=== PATIENT | female | born 1955 | race Caucasian/White ===

== ENCOUNTER → 2018-11-18 | Outpatient (CLI) | payer OTHER ==
--- NOTE | 2018-11-27 11:07 | PATH ---
[facility] [address] [place] [address] PATHOLOGY RPT PROCEDURE Name: CARTER NICHOLE Room #: REG LIZZIE Howard.#: [id number] Admission: 11/18/18 Date of : 55 Discharge: Report #: [id number] Path Case #: [id number] [facility] Accession Number: [id number] . 01 Material submitted: . breast - RIGHT BREAST MASS 11:00 6CMFN. Modifiers: right . 01 Clinical history: . Right breast mass . 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 (SEE COMMENT) LBQ/11/21/2018 . 02 Comment: Specimen type: Ultrasound guided needle biopsy; Tumor site: RT breast 11:00 6 cm fn; Tumor quantitation: Involving all cores, longest contiguous focus measuring 1.1 cm on the slide; Histologic type: Invasive ductal carcinoma with lobular features; Histologic grade: Grade II, moderately differentiated; Tubules, nuclei and mitoses: Tubules score - 3, nuclei score - 2, mitoses score - 1; LVSI: Not identified; Microcalcifications: Not identified; Markers: ER, WY, Her2 and Ki-67; Block: Pending on block A2. . Properly controlled immunohistochemical stains are performed. . Block A1 AE1/AE3 - Tumor cells reactive; E-cadherin - Tumor cells reactive. . The case is co-reviewed with Dr. John López. The case will be discussed with the [facility] on 11/22/18. (CLW/db; 11/21/2018) . 02 Addendum: . Special studies report received from [facility], [address] [place] [address], [facility] [address], [place], [address], on case [id number]*, labeled with their number [id number], dated 11/26/2018. . Breast/Prognostic Marker Analysis [address] [address] PATHOLOGY RPT PROCEDURE Name: CARTER NICHOLE Room #: REG LIZZIE Yarbrough#: [id number] Admission: 11/18/18 Date of : 55 Discharge: Report #: [id number] Path Case #: [id number] . Specimen Site: Rt Breast Mass,11:00, 6 cm FN, Breast Carcinoma (Biopsy) Specimen ID #: [id number] . ER (Estrogen Receptor) Present/Positive Percent: 95.00% Analysis: Manual Comments: Staining intensity: Moderate to strong . WY (Progesterone Receptor) Present/Positive Percent: 70.00% Analysis: Manual Comments: Staining intensity: Weak to moderate . HER2 Not Over-Expressed Score: 0 Analysis: Manual . . Ki-67 Low Proliferation Percent: 10.00% Analysis: Manual . Time to Fixation (Cold Ischemic Time): Not Provided Duration of Fixation: >7 and <72 hours Type of Fixative: 10% Neutral Buffered Formalin . at [employer]. January Herring M.D. Pathologist . Methodology The HER2 Receptor protein expression is analyzed using the [place] HER2 rabbit monoclonal antibody (clone 4B5). This assay is used for diagnostic determination of the HER2 protein over-expression in paraffin embedded, formalin fixed breast cancer tissue on the [place] Benchmark. The specimen is processed using a polymer detection system. The membrane staining of the tumor is determined either by manual score or image analysis. This antibody is intended for in vitro diagnostic use. The score is reported as per package insert; 0, 1+, 2+, and 3+. This test is used for clinical purposes. . [address] [address] PATHOLOGY RPT PROCEDURE Name: CARTER NICHOLE Room #: REG CLSamantha Yarbrough#: [id number] Admission: 11/18/18 Date of : 55 Discharge: Report #: [id number] Path Case #: [id number] A rabbit monoclonal antibody (clone SP1) that recognized the Estrogen Receptor is used to perform immunohistochemistry on routinely fixed (formalin) paraffin embedded tissue on the [place] Benchmark. The specimen is processed using a polymer detection system. The percentage of stained tumor nuclei is determined either manually or by image analysis. This test is intended for in vitro diagnostic use. This test is used for clinical purposes. . A rabbit monoclonal antibody (clone 1E2) that recognized the Progesterone Receptor is used to perform immunohistochemistry on routinely fixed (formalin) paraffin embedded tissue on the [place] Benchmark. The specimen is processed using a polymer detection system. The percentage of stained tumor nuclei is determined either manually or by image analysis. This test is intended for in vitro diagnostic use. This test is used for clinical purposes. . A rabbit monoclonal antibody (clone 30-9) that recognized Ki67 is used to perform immunohistochemistry on routinely fixed (formalin) paraffin embedded tissue on the [place] Benchmark. The specimen is processed using a polymer detection system. The percentage of stained tumor nuclei is determined either manually or by image analysis. This test is intended for in vitro diagnostic use. This test is used for clinical purposes. . Intended Use: This antibody is intended for in vitro diagnostic (IVD) use. HER2 (4B5) is a rabbit monoclonal antibody intended for the semi-quantitative detection of HER2 antigen in sections of formalin-fixed, paraffin embedded normal and neoplastic tissue. . This antibody is intended for in vitro diagnostic (IVD) use. Estrogen Receptor (ER) (SP1) is a rabbit monoclonal antibody (IgG) that is intended for the qualitative detection of estrogen receptor (ER) antigen in sections of formalin-fixed, paraffin-embedded tissue. ER is a rabbit monoclonal antibody that recognizes human estrogen receptor alpha. . This antibody is intended for in vitro diagnostic (IVD) use. Progesterone Receptor (WY) (1E2) is a rabbit monoclonal antibody (IgG) that is intended for the qualitative detection of progesterone receptor (WY) antigen in sections of formalin fixed, paraffin embedded tissue. WY is a rabbit monoclonal antibody that recognizes the A and B forms of the human progesterone receptor. . This antibody is intended for in vitro diagnostic (IVD) use. Ki-67 (30-9) is a rabbit monoclonal antibody (IgG) directed against C-terminal portion of Ki-67 antigen. Staining for Ki-67 can be used to aid in assessing the proliferative activity of normal and neoplastic tissue. Ki-67 is a nuclear protein expressed in proliferating cells. During the cell cycle, the Ki-67 antigen is present in the G1, S, G2 and M phase but is absent in the G0 [facility] [address] [place] [address] PATHOLOGY RPT PROCEDURE Name: CARTER NICHOLE Room #: REG CLI M.R.#: [id number] Admission: 11/18/18 Date of : 55 Discharge: Report #: [id number] Path Case #: [id number] (quiescent phase). . . Disclaimer: This Test was performed by [facility] at [address], [address]. . [facility] is a business unit of [employer] a wholly-owned subsidiary of [employer]. . This assay has not been validated on decalcified tissues. Results should be interpreted with caution if this specimen was decalcified given the likelihood of false negativity on decalcified specimens. . Any image(s) that accompany this report is/are a office machines sales representative image(s) only and should not be used to render a diagnosis. . This interpretation is contingent on the specimen and the clinical information received. . For any special tests/stains performed, known positive cells or tissues are tested with each marker and examined to ensure positivity. Positive and negative internal controls, if present, react appropriately. . This analysis is an adjunct to the evaluation of the referring physician and does not represent a final diagnosis. . The immunohistochemistry tests performed at [facility] [place] were validated on tissue fixed in 10% neutral buffered formalin. The performance characteristics of the tests performed on tissue processed in other fixatives is not known. . HER2 testing at [facility] [place] is performed in compliance with the 2018 updated ASCO/CAP Clinical Practice Guideline Focused Update. If the result is EQUIVOCAL (2+), it must be confirmed by an alternative assay such as FISH or Dual JOANNE. . REF: Andrés ALICIA, MASSIEL Booker et al: Human Epidermal Growth Factor Receptor 2 Testing in Breast Cancer: ASCO/CAP Clinical Practice Guideline Focused Update. J Clin Oncol 36:1948-7772, 2018. . HER2 and ER/WY ASCO/CAP guidelines require fixation in neutral buffered formalin for a minimum of 6 and a maximum of 72 hours. Fixation times less than 6 hours may not adequately preserve cell proteins. Fixation times longer than 72 hours may cause excess cross-linking of proteins reducing the antigen available for staining. Either scenario can cause reduced staining; hence false negative results are possible and should be [address] [address] PATHOLOGY RPT PROCEDURE Name: CARTER NICHOLE Room #: REG LIZZIE Yarbrough#: [id number] Admission: 11/18/18 Date of : 55 Discharge: Report #: [id number] Path Case #: [id number] considered for these situations if the HER2 IHC score is less than 3+ or ER or WY is negative (no staining or <1% positive). It is recommended that specimens fixed longer than 72 hours with HER2 IHC scores less than 3+ be confirmed by HER2 FISH or Dual JOANNE. The time from biopsy/excision to fixation in formalin (cold ischemic time) must be less than 1 hour. Time to fixation (cold ischemic time) greater than 1 hour should be interpreted with caution. HER2 testing, mainly HER2 by FISH, is particularly vulnerable since excessive cold ischemic time results in preferential loss of HER2 probe signals that may lead to false negative results. . SCORE STAINING PATTERN IN TUMOR CELLS INTERPRETATION RESULTS 0 No staining observed or incomplete, faint membrane staining in less than or equal to 10% of tumor cells. Negative 1+ Incomplete, faint membrane staining in greater than 10% of tumor cells. Negative 2+ Weak to moderate complete membrane staining observed in greater than 10% of tumor cells. Equivocal* *Must be confirmed by alternative assay (IHC/FISH/Dual JOANNE) 3+ Intense, complete membrane staining in greater than 10% of tumor cells. Positive . A complete copy of the report is on file. . Professional and Technical services performed by [employer] at [address] [place] [address], [address] [address]. . (CLW:ollie 11/26/2018) . MBR/11/26/2018 Addendum Electronically Signed by Carlie Damon MD, Pathologist . 02 Electronically signed: . Carlie Damon MD, Pathologist NPI- [id number] . 01 Gross description: . Received in formalin labeled "Carter Nichole, right breast BX," and additionally labeled on the requisition as "11:00, 6 cm FN," is are multiple needle cores of yellow-kahn fibrofatty tissue measuring 1.3 x 0.6 x 0.2 cm in aggregate dimensions. The tissue is submitted in its entirety in cassettes A1 through A3. The cold ischemic time is unknown. The total [facility] [address] [place] [address] PATHOLOGY RPT PROCEDURE Name: CARTER NICHOLE Room #: REG LIZZIE Yarbrough#: [id number] Admission: 11/18/18 Date of : 55 Discharge: Report #: [id number] Path Case #: [id number] formalin fixation time is greater than 7 hours and less than 72 hours. (TSD; 11/18/2018) TOB/TOB . 02 Pathologist provided ICD-10: C50.911 . 02 CPT . 559342, G20487, I62023 Specimen Comment: A courtesy copy of this report has been sent to Specimen Comment: [phone], . Specimen Comment: Report sent to / DR COYNE Performed at: 01 [facility] [address] [id number] MD Trevor Monahan MD Phone: [phone] Performed at: 02 [place] [address] [address] [id number] MD Villa Pérez MD Phone: [phone]
== END | disposition home or self-care (01) ==
LOC: RAD 13:27
DX: C50.911 Malignant neoplasm of unspecified site of right female breast (principal)

== ENCOUNTER → 2018-12-03 | Outpatient (CLI) | payer OTHER | LOC: ULTRA 09:13 | DX: E01.0 Iodine-deficiency related diffuse (endemic) goiter (principal) ==

== ENCOUNTER → 2020-08-02 | Outpatient (CLI) | payer OTHER | LOC: RAD 10:52 | PROVIDERS: ATTEND Family Medicine | DX: M19.042 Primary osteoarthritis, left hand (principal); M19.041 Primary osteoarthritis, right hand ==